=== PATIENT | male | born 1940 | race Caucasian/White ===

== ENCOUNTER → 2020-07-22 | Day surgery (SDC) | payer MEDICARE, BC ==
[~2020-07-22] MED LIST: ALBUTEROL INH; ASA81BEC PO; EYE DROPS GLAUCOMA; FASENRA30 MG/1 ML; FUROSEMIDE 40 M40 MG PO; INCRUSE ELLI62.5 MCG INH; METFORMIN HCL500 M3 PO; NORCO5 PO; OXYGEN INH; PROTONIX40 M2 PO; SIMVASTATIN80 MG PO; SYMBICORT160 MCG/4. INH; TELMISARTAN80 MG PO
--- NOTE | ~2020-07-22 | OP ---
[address] [address] OPERATIVE REPORT Name: ENRRIQUE DOMINGO Room: [facility]#: [id number] Admission: 07/22/20 Attend Phys: Carlos Fajardo DO Discharge: Date of : 44 Report #: [id number] THIS REPORT FOR: cc: Momo Werner Bradley L. DO Paul, Robert F. DO ~ DOC #: [id number] Carlos Fajardo DO DATE OF SURGERY: 07/22/2020 PREOPERATIVE DIAGNOSIS: Right carpal tunnel syndrome, severe. POSTOPERATIVE DIAGNOSIS: Right carpal tunnel syndrome, severe. PROCEDURE: Right carpal tunnel release. SURGEON: Carlos Fajardo DO. SUPERVISOR GROVE: Geraldo Maki DO and Rachel Linda DO ANESTHESIA: Local anesthetic with MAC sedation. ESTIMATED BLOOD LOSS: Minimal. COMPLICATIONS: None. SPECIMENS: None. INDICATIONS FOR SURGERY: The patient is a 80-year-old male with longstanding severe carpal tunnel syndrome, bilateral upper extremities, right worse than left. He is here today for elective surgical intervention. He is on oxygen and COPD. Therefore, he has done at the main surgery center with limited anesthetic and a local anesthetic. After discussing the operative technique, risks, and complications, he has no further questions, signed a informed consent, has been attached to chart may refer to and his hand is marked preoperatively for timeout technique. DESCRIPTION OF PROCEDURE: The patient was taken to the operating suite and placed on the operating room table in supine position. Following a mild sedation and injection of lidocaine into the carpal canal and locally about the skin to the right hand. An Esmarch was applied from fingertips to mid forearm, which is then peeled down from the fingertips and left in place on the forearm as a tourniquet. Outline of the incision site is made that is a full incision at the fourth ray crossing the flexor crease of the wrist at 45 degrees in a V-shaped fashion. Incision was carried down through skin and subcutaneous tissue under loupe magnification. Proximally, the [place] [address] OPERATIVE REPORT Name: ENRRIQUE DOMINGO Room: [facility]#: [id number] Admission: 07/22/20 Attend Phys: Carlos Fajardo DO Discharge: Date of : 44 Report #: [id number] With appropriate retractors in place. Scissor dissection is carried out through the flexor retinaculum. Following the median nerve distally. Observing it at all times. The median nerve was completely uncovered from the flexor retinaculum. Its branches are visualized as well in a protected. A full release was performed. Copious irrigation carried out throughout the incision. Hemostasis achieved with the use of electrocautery and direct pressure. Tourniquet was deflated. No further hemostasis necessary and the incision was closed with 4-0 nylon in simple interrupted fashion sutures. The incision was then injected with ropivacaine 15 mL. A bulky Post dressing was applied with Brandon wrap. The patient tolerated the procedure well and was taken to recovery room in stable condition. No complications were encountered. Final instrument counts and sponge counts were correct. Carlos Fajardo DO RFP/ANI By: 1500 [id number] Fajardo DO /nt
[2020-07-22 11:21] LABS: HEMATOCRIT 40.7 % (42.0-52.0); HEMOGLOBIN 13.4 gm/dL (14.0-18.0); MCH 31.4 pg (26.0-34.0); MCV 95.4 fL (80.0-100.0); MPV 8.8 fl. (7.2-11.1); RBC 4.26 mil/uL (4.50-6.00); RDW-CV 12.9 % (10.5-14.5); WBC 13.2 thou/uL (4.0-11.0)
[2020-07-22 11:28] LABS: CALCIUM 9.4 mg/dL (8.5-10.1); CREATININE 1.2 mg/dL (0.6-1.3)
[2020-07-22 11:30] LABS: POTASSIUM 3.8 mmol/L (3.5-5.1)
--- NOTE | 2020-07-22 17:44 | EKG ---
[place] [address] ELECTROCARDIOGRAM REPORT Name: ENRRIQUE DOMINGO Room: [facility]#: [id number] Admission: 07/22/20 Attend Phys: Carlos Fajardo DO Discharge: Date of : 44 Date of Service: 07/22/20 1120 Report #: [id number] THIS REPORT FOR: //name// [facility] Test Date: 2020-07-22 Test Time: 11:20:26 Pat Name: ENRRIQUE DOMINGO Department: Room: Gender: M [employer] Job [employer]: ALC : 1940 Requested By: Carlos Fajardo Order Number: [id number] Holli MD: Aric Chowdary Measurements Intervals [place] Rate: 61 P: 264 IA: 179 QRS: -13 QRSD: 101 T: -2 QT: 426 QTc: 429 Interpretive Statements Sinus rhythm Low voltage, precordial leads Abnormal R-wave progression, early transition Left ventricular hypertrophy No previous ECG available for comparison Electronically Signed On 07-22-2020 17:44:29 CDT by Aric Chowdary [email or web address] <ELECTRONICALLY SIGNED> By: Aric Chowdary MD, FAC 07/22/20 1744 1120 1120 Aric Chowdary MD, [facility] /EPI
== END | disposition home or self-care (01) ==
LOC: M.SUR 10:44
PROVIDERS: ATTEND Orthopaedic Surgery
DX: G56.01 Carpal tunnel syndrome, right upper limb (principal); E11.9 Type 2 diabetes mellitus without complications; J44.9 Chronic obstructive pulmonary disease, unspecified; Z98.890 Other specified postprocedural states; Z79.899 Other long term (current) drug therapy